=== PATIENT | male | born 1955 | race Caucasian/White ===

== ENCOUNTER 2023-07-18 15:51 | Outpatient (RCR) | payer MEDICARE, SELFPAY ==
[2023-07-18 14:38] LABS: Glucose - Point of Care 74 mg/dl (70-99)
[2023-07-18 14:59] LABS: Glucose - Point of Care 121 mg/dl (70-99)
[2023-07-18 15:20] LABS: Glucose - Point of Care 138 mg/dl (70-99)
== END 2023-07-18 23:59 | disposition home or self-care (01) ==
LOC: CRHB 15:51
PROVIDERS: ATTENDING PHYSICIAN Thoracic Surgery (Cardiothoracic Vascular Surgery)
DX: Z95.1 Presence of aortocoronary bypass graft (principal); I25.2 Old myocardial infarction
CPT/HCPCS: 82962; G0422